=== PATIENT | male | born 1980 | race Hispanic/Latino ===

== ENCOUNTER 2021-07-22 06:20 | Day surgery (SDC) | payer BC ==
[2021-07-19 16:27] LABS: Absolute Lymphocytes (CBC) 2.7 K/uL (0.7-4.9); Lymphocytes % 23.5 % (15.3-44.8); MPV 8.4 fL (7.6-11.3); RBC Red Blood Cell Count 4.54 M/uL (4.33-5.43)
[2021-07-19 16:35] LABS: Potassium 4.5 mmol/L (3.5-5.1)
--- NOTE | 2021-07-19 16:42 | RAD REPORT ---
EXAM DESCRIPTION: RAD - Chest Pa And Lat (2 Views) - 07/19/2021 4:09 pm CLINICAL HISTORY: Pre Op pending back mass removal COMPARISON: None TECHNIQUE: Frontal and lateral views of the chest were obtained. FINDINGS: The lungs are clear. Heart size is normal and central vasculature is within normal limit s. No pleural effusion or pneumothorax seen. No acute bony finding noted. No aortic abnormality. IMPRESSION: No acute cardiopulmonary process.
--- NOTE | 2021-07-20 07:48 | EKG ---
Test Date: 2021-07-19 Test Time: 15:50:20 Medical Associate: AMY MEASUREMENT RESULTS: Intervals: Rate: 76 PA: 178 QRSD: 100 QT: 366 QTc: 411 Grannis: P: 64 PA: 178 QRS: -1 T: 38 INTERPRETIVE STATEMENTS: Normal sinus rhythm Normal ECG No previous ECG available for comparison Electronically Signed On 07-20-21 07:45:43 PEARL CUTTER by Andrew Barajas
[2021-07-22] MEDS ORDERED: Ringers Lactate 1,000 ML IV ONE (06:45)
[2021-07-22] MEDS ORDERED: CEFAZOLIN/NS 1gm 1 GM/50 ML BAG ONE (06:46)
[2021-07-22] MEDS ORDERED: LIDOCAINE 1% 20 ML MDV ONE (07:15)
[2021-07-22] MEDS ORDERED: BUPIVACAINE 0.5% PF 10 ML VIAL ONE (07:15)
[2021-07-22] MEDS ORDERED: LIDOCAINE 1% MPF 5 ML VIAL ONE (07:18)
[2021-07-22] MEDS ORDERED: FENTANYL CITR 100 MCG/2 ML ONE (07:18)
[2021-07-22] MEDS ORDERED: MIDAZOLAM HCL 2 MG/2 ML INJ ONE (07:18)
[2021-07-22] MEDS ORDERED: propofoL 200 MG/20 ML VIAL IV ONE (07:18)
[2021-07-22] MEDS ORDERED: KETOROLAC 30 MG/ML INJ ONE (07:55)
[2021-07-22] MEDS ORDERED: ONDANSETRON 4 MG/2 ML VIAL ONE (07:55)
[2021-07-22 08:53] VITALS: O2SAT 100
[2021-07-22 09:07] VITALS: BP 111/86; TEMP 97.4
[2021-07-22] MEDS ORDERED: CODEINE 30MG/APAP 300MG TAB ONE (09:12)
--- NOTE | 2021-07-22 09:38 | OP ---
Date of Procedure: 07/22/2021 Surgeon: Ken Hathaway MD Cmo & President: None. Preoperative Diagnosis: Inflamed left back mass, likely a sebaceous cyst. Postoperative Diagnosis: Inflamed left back mass, likely a sebaceous cyst. Procedure: Wide excision of left back mass 12 x 4 cm with layered closure. Estimated Blood Loss: Minimal. Specimen: Culture and sensitivity of the purulent material that was inside the cyst and the entire c yst in total. Findings: As above. Anesthesia: General. Complications: None. Disposition: The patient tolerated the procedure in stable condition and taken to Recovery in good g eneral condition. Procedure In Detail: The patient was brought to the OR and placed in supine position. General anest hesia begun. The patient was placed in the right lateral position, prepped draped in the usual steri le fashion. Marcaine 0.5% was infiltrated locally for postop pain control and 15 blade was used to m елена a 12 x 4 cm incision to include the punctum of the cyst and subcutaneous tissue divided and then the cyst carefully dissected. There was minimal purulence that was coming from the cyst and that was cultured. The entire cyst in total was excised including all the jennings and everything and sent to P athology. Wound irrigated. Bleeding controlled with cautery. Flaps created and then 0 chromic was used to approximate subcutaneous tissue and kristin used to close skin. A quarter-inch [place] drain was placed to secure with 3-0 nylon and then sterile dressing was applied. Patient was awakened and taken to Recovery in good general condition. Discharge Note: The patient will go to Day Surgery and home when stable. Disposition: Home. Condition: Stable. Discharge Instructions: Resume home medications and diet. Activity as tolerated. Remove outer dres sing in 2 days. Shower. Keep wound clean and dry. Follow up in my office in 10 days. Call for sindy ointment. Tylenol No.3 one tablet p.o. q.4 p.r.n. pain, Cipro 500 mg p.o. q.12. /MODL Voice ID: [id number] Report ID: [id number]
== END 2021-07-22 09:49 | disposition home or self-care (01) ==
LOC: OR 06:20
PROVIDERS: ATTEND Surgery
PROC: 0JB70ZZ Excision of Back Subcutaneous Tissue and Fascia, Open Approach (ICD-10-PCS; principal; 2021-07-22 08:45)
DX: L72.0 Epidermal cyst (principal)
CPT/HCPCS: 93005; 87070; 85025; 80048; 36415; 87205; 88305; 87075; 71046; 11406; J2704; J2250; J3010; J0690; J7120; J2405; 88304

== ENCOUNTER 2021-10-09 09:36 | Emergency (ER) | payer BC ==
--- OUTSIDE RECORDS SUMMARY | 2021-10-09 09:39 | XMS REPORT | Continuity of Care Document ---
:1980 Author Organization [facility] t Address [address] [place] [address] Care Team Providers Name Role Phone Pcp, Does Not Have A Primary Care Physician Nurse, [facility] Attending Clinician Unavailable Unknown Attending Clinician Unavailable Payers Payer Name Policy Type Policy Number Effective Date Expiration Date S ource Problems This patient has no known problems. Allergies, Adverse Reactions, Alerts This patient has no known allergies or adverse reactions. Social History Social Habit Start Date Stop Date Quantity Comments Source Exposure to Not sure [facility] SARS-CoV-2 (event) [facility] [place] Tobacco use and 2021-10-09 2021-10-09 Never used [facility] exposure 00:00:00 00:00:00 [facility] Sex Assigned At [birth year] [facility] 00:00:00 00:00:00 [facility] Smoking Status Start Date Stop Date Source Never smoker [facility] Medications This patient has no known medications. Vital Signs Vital Name Observation Time Observation Value Comments Source Body height 2021-10-09 14:27:00 180.3 cm [facility] Body weight 2021-10-09 14:27:00 122.018 kg [facility] BMI 2021-10-09 14:27:00 37.52 kg/m2 [facility] Oxygen saturation in 2021-10-09 14:27:00 98 /min [facility] Arterial blood by [facility] Pulse oximetry Branch Systolic blood 2021-10-09 14:27:00 131 mm[Hg] Vanessa tucker of pressure [facility] Diastolic blood 2021-10-09 14:27:00 85 mm[Hg] Unive rsity of pressure [facility] Heart rate 2021-10-09 14:27:00 87 /min [facility] Body temperature 2021-10-09 14:27:[address] [facility] Respiratory rate 2021-10-09 14:27:00 16 /min [facility] Procedures This patient has no known procedures. Encounters Start End Encounter Admission Attending Care Care Encounter Source Date/Time Date/Time Type Type Clinicians Facility Department ID 2021-10-09 2021-10-09 Nurse Nurse, Mehran [facility] [id number] [facility] 09:15:00 09:35:00 Visit Unknown, Attending HEALTH [id number] Lucita [id number] Anselmo as NAZANIN?BLEA [phone] [address] MEDICAL OFFICE BUILDING Results This patient has no known results.
--- NOTE | 2021-10-09 11:17 | RAD REPORT ---
EXAM DESCRIPTION: US - Scrotum Testicles - 10/09/2021 10:39 am CLINICAL HISTORY: Swelling;Pain COMPARISON: No comparisons FINDINGS: The right testicle 4.1 x 3.7 x 3.0 cm. No intratesticular masses or evidence of testicular torsion. The left testicle 4.5 x 3.2 x 2.7 cm. No intratesticular masses or evidence of testicular torsion. Both epididymides are normal in size and appearance. No pathologic fluid collections. Trace scrotal fluid bilaterally. IMPRESSION: Unremarkable study.
[2021-10-09 11:43] LABS: Urine Blood Negative (Negative); Urine Glucose Negative (Negative); Urine Protein Negative (Negative)
--- NOTE | 2021-10-09 11:51 | EDPHYS ---
Physician Documentation [facility] Name: Theodore Esqueda Jr Age: 41 yrs Sex: Male : 1980 Arrival Date: 10/09/2021 Time: 09:38 Bed 5 Private MD: Davi Longo E ED Physician Spike Cardozo HPI: 10/09 11:49 This 41 yrs old Male presents to ER via Ambulatory with complaints of kb Testicular Swelling, Testicular Pain. 11:49 The patient presents with scrotal pain, of the right side, without erythema, swelling, kb tenderness. Onset: The symptoms/episode began/occurred yesterday. Modifying factors: The symptoms are alleviated by nothing, the symptoms are aggravated by movement, pressure. Associated signs and symptoms: The patient has no apparent associated signs or symptoms. Severity of symptoms: At their worst the symptoms were moderate, in the emergency department the symptoms are unchanged. The patient has not experienced similar symptoms in the past. The patient has not recently seen a physician. Historical: - Allergies: 09:55 No Known Allergies; jl7 - Home Meds: 09:55 None [Active]; jl7 - PMHx: 09:55 None; jl7 - PSHx: 09:55 None; jl7 - Immunization history:: Client reports receiving the 2nd dose of the Covid vaccine. - Social history:: Smoking status: Patient denies any tobacco usage or history of. ROS: 11:49 Constitutional: Negative for fever, chills, and weight loss. kb 11:49 : Positive for testicular pain of the right testicle. 11:49 All other systems are negative. Exam: 11:49 Constitutional: This is a well developed, well nourished patient who is awake, alert, kb and in no acute distress. Head/Face: Normocephalic, atraumatic. ENT: Moist Mucous membranes Respiratory: Respirations even and unlabored. No increased work of breathing. Talking in full sentences Abdomen/GI: Soft, non-tender. No distention Skin: Warm, dry with normal turgor. Normal color. MS/ Extremity: Pulses equal, no cyanosis. Neurovascular intact. Full, normal range of motion. Neuro: Awake and alert, GCS 15, oriented to person, place, time, and situation. Moves all extremities. Normal gait. Psych: Awake, alert, with orientation to person, place and time. Behavior, mood, and affect are within normal limits. 11:49 : Male external genitalia: tenderness, of the right testicle is noted, that is moderate. Vital Signs: 09:46 BP 148 / 85; Pulse 85; Resp 17; Temp 98; Pulse Ox 100% ; Weight 120.2 kg; Height 5 ft. jl7 11 in. (180.34 cm); Pain 4/10; 09:46 Body Mass Index 36.96 (120.20 kg, 180.34 cm) jl7 MDM: 09:48 Patient medically screened. kb 11:48 Data reviewed: vital signs, nurses notes. Data interpreted: Pulse oximetry: on room air kb is 100 %. Interpretation: normal. Counseling: I had a detailed discussion with the patient and/or guardian regarding: the historical points, exam findings, and any diagnostic results supporting the discharge/admit diagnosis, radiology results, the need for outpatient follow up, a family practitioner, to return to the emergency department if symptoms worsen or persist or if there are any questions or concerns that arise at home. 12:42 ED course: No signs of cellulitis, abscess, discoloration noted to scrotum. kb 10/09 11:44 Order name: Urine Dipstick-Ancillary; Complete Time: 11:45 EDUT 10/09 09:49 Order name: US Scrotum Testicles; Complete Time: 11:20 kb 10/09 11:37 Order name: Urine Dipstick-Ancillary (obtain specimen); Complete Time: 11:45 kb Administered Medications: No medications were administered Disposition: 14:51 Co-signature as Attending Physician, Spike Cardozo MD. rn Disposition Summary: 10/09/21 11:50 Discharge Ordered Location: Home kb Condition: Stable kb Diagnosis - Right testicular pain kb Followup: kb - With: Emergency Department - When: As needed - Reason: Worsening of condition Followup: kb - With: Donovan Chowdary MD - When: 2 - 3 days - Reason: Recheck today's complaints Discharge Instructions: - Discharge Summary Sheet kb - Testicular Self-Exam, [id number] kb Forms: - Medication Reconciliation Form kb - Thank You Letter kb - Antibiotic Education kb - Prescription Opioid Use kb Signatures: Dispatcher [employer] EDMS Esperanza Wilson FNP-Keren KIM-Ckb Spike Cardozo MD MD rn Leal, Jahala, DAVID RN jl7
--- NOTE | 2021-10-09 11:51 | ER ---
Nurse's Notes [facility] Name: Theodore Esqueda Jr Age: 41 yrs Sex: Male : 1980 Arrival Date: 10/09/2021 Time: 09:38 Bed 5 Private MD: Davi Longo E Diagnosis: Right testicular pain Presentation: 10/09 09:46 Chief complaint: Patient states: Right testicular swelling and pain x 1 day, denies jl7 trauma, denies urinary symtpoms. 09:46 Coronavirus screen: At this time, the client does not indicate any symptoms associated jl7 with coronavirus-19. Ebola Screen: No symptoms or risks identified at this time. Initial Sepsis Screen: Does the patient meet any 2 criteria? No. Patient's initial sepsis screen is negative. Does the patient have a suspected source of infection? No. Patient's initial sepsis screen is negative. Risk Assessment: Do you want to hurt yourself or someone else? Patient reports no desire to harm self or others. Onset of symptoms was October 08, 2021. Care prior to arrival: None. 09:46 Method Of Arrival: Ambulatory jl7 09:46 Acuity: BINA 2 jl7 Triage Assessment: 09:55 General: Appears in no apparent distress. uncomfortable, Behavior is calm, cooperative, jl7 appropriate for age. Pain: Complains of pain in pelvis Pain currently is 4 out of 10 on a pain scale. Historical: - Allergies: 09:55 No Known Allergies; jl7 - Home Meds: 09:55 None [Active]; jl7 - PMHx: 09:55 None; jl7 - PSHx: 09:55 None; jl7 - Immunization history:: Client reports receiving the 2nd dose of the Covid vaccine. - Social history:: Smoking status: Patient denies any tobacco usage or history of. Screenin:12 Abuse screen: Denies threats or abuse. Denies injuries from another. Nutritional villavicencio screening: No deficits noted. Tuberculosis screening: No symptoms or risk factors identified. Fall Risk None identified. Assessment: 10:12 General: Appears in no apparent distress. Behavior is calm, cooperative. Pain: villavicencio Complains of pain in right testicular pain. : Reports pain in right testicle. Vital Signs: 09:46 BP 148 / 85; Pulse 85; Resp 17; Temp 98; Pulse Ox 100% ; Weight 120.2 kg; Height 5 ft. jl7 11 in. (180.34 cm); Pain 4/10; 09:46 Body Mass Index 36.96 (120.20 kg, 180.34 cm) jl7 ED Course: 09:38 Patient arrived in ED. as 09:39 Davi Longo MD is Private Physician. as 09:45 Esperanza Wilson FNP-C is [facility]. kb 09:45 Spike Cardozo MD is Attending Physician. kb 09:52 Aimee Thompson, RN is Primary Nurse. villavicencio 09:55 Triage completed. jl7 09:55 Arm band placed on right wrist. jl7 10:12 Patient has correct armband on for positive identification. Bed in low position. villavicencio 10:12 No provider procedures requiring assistance completed. villavicencio 10:41 US Scrotum Testicles In Process Unspecified. EDMS 11:50 Donovan Chowdary MD is Referral Physician. kb 12:04 Patient did not have IV access during this emergency room visit. villavicencio Administered Medications: No medications were administered Outcome: 11:50 Discharge ordered by MD. kb 12:04 Discharged to home villavicencio 12:04 Condition: good 12:04 Discharge instructions given to patient. 12:04 Patient left the ED. villavicencio Signatures: Dispatcher [employer] EDMS Esperanza Wilson FNP-C FNP-Ckb Martinez, Amelia as Leal, Jahala, RN RN [facility] Aimee Thompson, DAVID RN
[2021-10-09 12:08] VITALS: BP 148/85; TEMP 98; O2SAT 100
== END 2021-10-09 12:04 | disposition home or self-care (01) ==
LOC: ER 09:36
DX: N50.811 Right testicular pain (principal)
CPT/HCPCS: 76870; 81003; 99283

== ENCOUNTER 2023-06-18 03:42 | Emergency (ER) | payer BC ==
--- OUTSIDE RECORDS SUMMARY | 2023-06-18 03:46 | XMS REPORT | Continuity of Care Document ---
Author Name Unknown Address [address] [facility] [address] [place] [address] [facility] thconnect Address [address] [facility] 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 Role Phone Davi Longo Elizabeth Primary Care Physician Nickell_K Attending Clinician Unavailable ROBLES MARIE Attending Clinician Unavailable NETTA PERRY Attending Clinician Unavailable AILYN GUEVARA Attending Clinician Unavail able LI ERIC Attending Clinician Un available ADRIÁN GALAN Attending Clinician Unavailable Doctor Unassigned, [place] Attending Clinician U hilda Nurse, [facility] Attending Clinician Un available Unknown, Attending Attending Clinician Unavailab DEBBI Snell Attending Clinician Unavailable UNKNOWN, ATTENDING Attending Clinician Unavailab maria fernanda Davila_Lucie Admitting Clinician Unavailable NETTA PERRY Admitting Clinician Unavailable MOVAILYN ORTIZ Admitting Clinician Unavailable Payers Payer Name Policy Type Policy Number Effective Date Expirati on Date Source [place] [id number] 2019 00:00:00 [facility] [id number] 2019 00:00:00 Problems Condition Name Condition Details Condition Category Status Onset Date Resolution Date Last Treatment Date Treating Clinician Comments Source Male hypogonadi sm Male Hypogonadi sm Problem Active 5-17 00:00: 00 [facility] Body mass index 30+ - obesity Body Mass Index 30+ - Obesity Problem Active 2021-07 0-12 00:00: 00 [facility] Chronic cystitis Chronic Cystitis Problem Active 2021-07 0 00:00: 00 [facility] Orchitis and epididymit is Orchitis and Epididymit is Problem Active 2021-07 00:00: 00 [facility] Allergies, Adverse Reactions, Alerts Allergy Name Allergy Type Status Severity Reaction(s) Onset Date Inactive Date Treating Clinician Comments Source NO KNOWN ALLERGIE S Drug Class Active [facility] Social History Social Habit Start Date Stop Date Quantity Comments Source Exposure to SARS-CoV-2 (event) Not sure [facility] Tobacco use and exposure 2021-10-09 00:00:00 2021-10-09 00:00:00 Never used [facility] Sex Assigned At 1980 00:00:00 1980 00:00:00 [facility] Smoking Status Start Date Stop Date Source Current Some Day Smoker [facility] Never smoker [facility] Medications Ordered Medication Name Filled Medication Name Start Date Stop Date Current Medication? Ordering Clinician Indication Dosage Frequency Signature (SIG) Comments Components Source cranberry cranberry No cranberry [facility] cranberry cranberry No cranberry [facility] multivitami n multivitami n No multivitam in [facility] tamsulosin 0.4 mg capsule Take 1 capsule every day by oral route for 90 days. tamsulosin 0.4 mg capsule Take 1 capsule every day by oral route for 90 days. No 1capsul e(s) Q1D tamsulosin 0.4 mg capsule Take 1 capsule every day by oral route for 90 days. [facility] cefpodoxime 200 mg tablet Take 1 tablet every 12 hours by oral route. cefpodoxime 200 mg tablet Take 1 tablet every 12 hours by oral route. No 1 Q12H cefpodoxim e 200 mg tablet Take 1 tablet every 12 hours by oral route. [facility] cranberry cranberry No cranberry [facility] multivitami n multivitami n No multivitam in [facility] ondansetron ondansetron No on dansetro n [facility] tamsulosin 0.4 mg capsule TAKE 1 CAPSULE BY MOUTH EVERY DAY tamsulosin 0.4 mg capsule TAKE 1 CAPSULE BY MOUTH EVERY DAY No tamsulosin 0.4 mg capsule TAKE 1 CAPSULE BY MOUTH EVERY DAY [facility] cranberry cranberry No cranberry [facility] multivitami n multivitami n No multivitam in [facility] tamsulosin 0.4 mg capsule TAKE 1 CAPSULE BY MOUTH EVERY DAY tamsulosin 0.4 mg capsule TAKE 1 CAPSULE BY MOUTH EVERY DAY No tamsulosin 0.4 mg capsule TAKE 1 CAPSULE BY MOUTH EVERY DAY [facility] Vital Signs Vital Name Observation Time Observation Value Comments S ource Body Weight 2023-05-04 00:00:00 250 [lb_av] [facility] BP Diastolic 2023-05-04 00:00:00 64 mm[Hg] [facility] Height 2023-05-04 00:00:00 71 [in_i] [facility] BMI (Body Mass Index) 2023-05-04 00:00:00 34.9 kg/m2 [facility] BP Systolic 2023-05-04 00:00:00 128 mm[Hg] [facility] BP Diastolic 2022-12-22 00:00:00 66 mm[Hg] [facility] Height 2022-12-22 00:00:00 71 [in_i] [facility] BMI (Body Mass Index) 2022-12-22 00:00:00 37 kg/m2 [facility] BP Systolic 2022-12-22 00:00:00 128 mm[Hg] [facility] Body Weight 2022-12-22 00:00:00 265 [lb_av] [facility] BP Diastolic 2022-11-10 00:00:00 72 mm[Hg] [facility] Height 2022-11-10 00:00:00 71 [in_i] [facility] BMI (Body Mass Index) 2022-11-10 00:00:00 36.3 kg/m2 [facility] BP Systolic 2022-11-10 00:00:00 128 mm[Hg] [facility] Body Weight 2022-11-10 00:00:00 260 [lb_av] [facility] BP Diastolic 2022-04-19 00:00:00 68 mm[Hg] [facility] Height 2022-04-19 00:00:00 71 [in_i] [facility] BMI (Body Mass Index) 2022-04-19 00:00:00 39.1 kg/m2 [facility] BP Systolic 2022-04-19 00:00:00 122 mm[Hg] [facility] Body Weight 2022-04-19 00:00:00 280 [lb_av] [facility] Systolic blood pressure 2021-10-09 14:27:00 131 mm[Hg] [facility] Diastolic blood pressure 2021-10-09 14:27:00 85 mm[Hg] [facility] Heart rate 2021-10-09 14:27:00 87 /min [facility] Body temperature 2021-10-09 14:27:00 36.78 Debra [facility] Respiratory rate 2021-10-09 14:27:00 16 /min [facility] Body height 2021-10-09 14:27:00 180.3 cm [facility] Body weight 2021-10-09 14:27:00 122.018 kg [facility] BMI 2021-10-09 14:27:00 37.52 kg/m2 [facility] Oxygen saturation in Arterial blood by Pulse oximetry 2021-10-09 14:27:00 98 /min [facility] Procedures Procedure Date / Time Performed Performing Clinicia n Source REFERRAL- REQUEST/RESPONSE 2021-10-10 05:01:00 Doctor Unassigned, [place] [facility] Plan of Care Planned Activity Planned Date Details Comments Source Diagnostic Test Pending 2022-12-22 00:00:00 urinalysis, dipstick [code = urinalysis, dipstick] [facility] Diagnostic Test Pending 2022-12-22 00:00:00 culture, urine [code = culture, urine] [facility] Future Appointment 2023-11-03 00:00:00 Chris Davila, [id number] [address]; , [place] [address] [facility] Encounters Start Date/Time End Date/Time Encounter Type Admission Type Attending [facility] Care Department Encounter ID Source 2023-05-08 00:00:00 2023-05-08 00:00:00 Outpatient Nickell_K HMU HMU [id number] [facility] 2023-05-04 00:00:00 2023-05-04 00:00:00 Outpatient Nickell_K HMU HMU [id number] [facility] 2023-05-04 00:00:00 2023-05-04 00:00:00 Chris Davila MD: [id number] [address], [place] [address] , Ph. [facility] [place] - [id number] [facility] 2023-05-01 00:00:00 2023-05-01 00:00:00 Outpatient Nickell_K HMU HMU [id number] [facility] 2023-02-08 00:00:00 2023-02-08 00:00:00 Outpatient Nickell_K HMU HMU [id number] [facility] 2023-01-04 00:00:00 2023-01-04 00:00:00 Outpatient Nickell_K HMU HMU [id number] [facility] 2022-12-22 00:00:00 2022-12-22 00:00:00 Outpatient Nickell_K HMU HMU [id number] [facility] 2022-12-22 00:00:00 2022-12-22 00:00:00 Outpatient Nickell_K HMU HMU [id number] [facility] 2022-12-22 00:00:00 2022-12-22 00:00:00 Chris Davila MD: [id number] [address], [place] [address] , Ph. [facility] [place] - [id number] [facility] 2022-12-21 19:43:00 2022-12-21 23:06:00 [id number] 2022-11-30 00:00:00 2022-11-30 00:00:00 Outpatient Nickell_K HMU HMU [id number] [facility] 2022-11-21 00:00:00 2022-11-21 00:00:00 Outpatient Nickell_K HMU HMU [id number] [facility] 2022-11-10 00:00:00 2022-11-10 00:00:00 Outpatient Nickell_K HMU HMU [id number] [facility] 2022-11-10 00:00:00 2022-11-10 00:00:00 Outpatient Nickell_K HMU U [id number] [facility] 2022-11-10 00:00:00 2022-11-10 00:00:00 Chris Davila MD: [id number] [address] , Ph. [facility] [id number] [facility] 2022-11-06 00:00:00 2022-11-06 00:00:00 Outpatient Nickell_K HMU U [id number] [facility] 2022-11-06 00:00:00 2022-11-06 00:00:00 Outpatient Nickell_K HMU [id number] [facility] 2022-04-27 00:00:00 2022-04-27 00:00:00 Outpatient Nickell_K HMU HMU [id number] [facility] 2022-04-20 00:00:00 2022-04-20 00:00:00 Outpatient Nickell_K HMU HMU [id number] [facility] 2022-04-19 00:00:00 2022-04-19 00:00:00 Outpatient Nickell_K HMU HMU [id number] [facility] 2022-04-19 00:00:00 2022-04-19 00:00:00 Chris Davila MD: [id number] [facility] [address], [place] [address] , Ph. [facility] [place] - [id number] [facility] 2022-04-17 00:00:00 2022-04-17 00:00:00 Outpatient Nickell_K [facility] [id number] [facility] 2022-03-28 00:00:00 2022-03-28 00:00:00 Outpatient Nickell_K [facility] [id number] [facility] 2021-11-05 16:27:00 2021-11-09 16:22:00 Inpatient E NETTA PERRY [facility] MED [id number] [facility] 2021-10-21 08:52:00 2021-10-24 12:45:00 Inpatient E AILYN GUEVARA [facility] MED [id number] [facility] 2021-10-19 16:53:00 2021-10-20 01:16:00 Emergency E LI ERIC [facility] [id number] [facility] 2021-10-13 10:30:00 2021-10-13 10:30:00 Outpatient R ADRIÁN GALAN [facility] [id number] [facility] 2021-10-10 00:00:00 2021-10-10 00:00:00 Orders Only Doctor Unassigned, [place] [facility] [id number] [facility] 2021-10-09 09:15:00 2021-10-09 09:35:00 Nurse Visit Nurse, [facility] Unknown, Attending [facility] [id number] [facility] 2021-10-09 09:15:00 2021-10-09 09:29:36 Outpatient R DEBBI TRISTAN [facility] [id number] [facility] 2021-10-09 09:15:00 2021-10-09 09:15:00 Outpatient R UNKNOWN, ATTENDING [facility] [id number] [facility] Results Test Description Test Time Test Comments Results Result Co mments Source [facility] UrologyUrinalysis macro (dipstick) panel - [id number] 15:37:00* Test Item Value Reference Range Interpretation Comme nts leukocytes (test code = leukocytes) negative neg urobilinogen (test code = urobilinogen) 0.2 E.U./dL sm amt (.5-1mg/dL) protein (test code = protein) negative See_Comment [Automated messa ge] The system which generated this result transmitted reference range: <=150 mg/d. The reference range was not used to interpret this result as normal/abnormal. pH (test code = pH) 7.0 4.5-8 blood (test code = blood) negative See_Comment [Automated messa ge] The system which generated this result transmitted reference range: <=3 RBC. The reference range was not used to interpret this result as normal/abnormal. specific gravity (test code = specific gravity) 1.025 1.005-1.025 ketone (test code = ketone) trace none A bilirubin (test code = bilirubin) negative neg glucose (test code = glucose) negative See_Comment [Automated messa ge] The system which generated this result transmitted reference range: <=130 mg/d. The reference range was not used to interpret this result as normal/abnormal. color (test code = color) yellow yellow clarity (test code = clarity) clear clear or cloudy nitrite (test code = nitrite) negative neg [facility] UrologyUrinalysis macro (dipstick) panel - [id number] 11:07:00* Test Item Value Reference Range Interpretation Comme nts leukocytes (test code = leukocytes) negative neg urobilinogen (test code = urobilinogen) 0.2 E.U./dL sm amt (.5-1mg/dL) protein (test code = protein) negative See_Comment [Automated messa ge] The system which generated this result transmitted reference range: <=150 mg/d. The reference range was not used to interpret this result as normal/abnormal. pH (test code = pH) 6.5 4.5-8 blood (test code = blood) negative See_Comment [Automated [employer]] The system which generated this result transmitted reference range: <=3 RBC. The reference range was not used to interpret this result as normal/abnormal. specific gravity (test code = specific gravity) 1.020 1.005-1.025 ketone (test code = ketone) negative none bilirubin (test code = bilirubin) negative neg glucose (test code = glucose) negative See_Comment [Automated [employer]] The system which generated this result transmitted reference range: <=130 mg/d. The reference range was not used to interpret this result as normal/abnormal. color (test code = color) yellow yellow clarity (test code = clarity) clear clear or cloudy nitrite (test code = nitrite) negative neg [facility]
[2023-06-18] MEDS ORDERED: NA CHLORIDE 0.9% 1,000 ML ONE (04:25)
[2023-06-18 04:40] LABS: Absolute Lymphocytes (CBC) 2.7 K/uL (0.7-4.9); Hematocrit 44.7 % (39.6-49.0); Lymphocytes % 22.7 % (15.3-44.8); MCV 89.7 fL (80-100); MPV 8.3 fL (7.6-11.3); Platelets 322 thou/uL (152-406); RBC Red Blood Cell Count 4.98 M/uL (4.33-5.43)
[2023-06-18 04:47] LABS: Albumin 4.1 g/dL (3.4-5.0); Potassium 3.7 mEq/L (3.5-5.1); Protein, Total 8.6 g/dL (6.4-8.2)
--- NOTE | 2023-06-18 06:14 | EDPHYS ---
Physician Documentation [facility] Name: Theodore Esqueda Jr Age: 43 yrs Sex: Male : 1980 Arrival Date: 06/18/2023 Time: 03:42 Bed 12 Private MD: ED Physician Nehemias Hernandez HPI: 06/18 04:14 This 43 yrs old Male presents to ER via Ambulatory with complaints of rt Diarrhea, Abdominal Pain. 04:14 Patient presents to the ED with diarrhea, generalized abdominal pain starting about 24 rt hours ago. States the diarrhea is watery, nonbloody. Denies other acute complaints, symptoms are moderate severity, no other aggravating or alleviating factors.. Historical: - Allergies: 04:05 No Known Allergies; ha1 - PMHx: 04:05 None; ha1 - PSHx: 04:05 riight testicle removed; ha1 - Immunization history:: Adult Immunizations not up to date. - Social history:: Smoking status: Patient reports the use of cigarette tobacco products, denies chronic smoking, but will smoke occasionally. - Family history:: not pertinent. ROS: 04:14 Constitutional: Negative for fever, chills, and weight loss, Cardiovascular: Negative rt for chest pain, palpitations, and edema, Respiratory: Negative for shortness of breath, cough, wheezing, and pleuritic chest pain, MS/Extremity: Negative for injury and deformity, Skin: Negative for injury, rash, and discoloration, Neuro: Negative for headache, weakness, numbness, tingling, and seizure, Psych: Negative for depression, anxiety, suicide ideation, homicidal ideation, and hallucinations, 04:14 Abdomen/GI: Positive for abdominal pain, diarrhea, Negative for nausea and vomiting, Exam: 04:14 Constitutional: This is a well developed, well nourished patient who is awake, alert, rt and in no acute distress. Head/Face: Normocephalic, atraumatic. Chest/axilla: Normal chest wall appearance and motion. Nontender with no deformity. No lesions are appreciated. Cardiovascular: Regular rate and rhythm with a normal S1 and S2. No gallops, murmurs, or rubs. Normal PMI, no JVD. No pulse deficits. Respiratory: Lungs have equal breath sounds bilaterally, clear to auscultation and percussion. No rales, rhonchi or wheezes noted. No increased work of breathing, no retractions or nasal flaring. Skin: Warm, dry with normal turgor. Normal color with no rashes, no lesions, and no evidence of cellulitis. MS/ Extremity: Pulses equal, no cyanosis. Neurovascular intact. Full, normal range of motion. Neuro: Awake and alert, GCS 15, oriented to person, place, time, and situation. Cranial nerves II-XII grossly intact. Motor strength 5/5 in all extremities. Sensory grossly intact. Cerebellar exam normal. Normal gait. Psych: Awake, alert, with orientation to person, place and time. Behavior, mood, and affect are within normal limits. 04:14 Respiratory: Mild tenderness diffusely, worse in the right upper quadrant, no rebound, guarding, distention, Vital Signs: 04:00 BP 135 / 88; Pulse 75; Resp 16 S; Temp 97.8(O); Pulse Ox 98% on R/A; Weight 111.13 kg; ha1 Height 5 ft. 10 in. ; Pain 4/10; 04:27 BP 117 / 80; Pulse 74; Resp 17 S; Pulse Ox 98% on R/A; ha1 05:03 BP 126 / 80; Pulse 75; Resp 17 S; Pulse Ox 99% on R/A; ha1 06:00 BP 125 / 70; Pulse 70; Resp 15 S; Temp 98.1(O); Pulse Ox 100% on R/A; ha1 04:00 Body Mass Index 35.15 (111.13 kg, 177.8 cm) ha1 04:00 Pain Scale: Adult ha1 MDM: 03:59 Patient medically screened. rt 06:14 Differential diagnosis: Diverticulitis, colitis, viral gastroenteritis. Data reviewed: rt vital signs, nurses notes, lab test result(s), radiologic studies. Independent interpretation of the following test(s) in the Emergency Department CT Scan: My interpretation is No bowel obstruction syndrome interpretation of CT scan images. Counseling: I had a detailed discussion with the patient and/or guardian regarding the historical points, exam findings, and any diagnostic results supporting the discharge/admit diagnosis, lab results, radiology results, the need for outpatient follow up, to return to the emergency department if symptoms worsen or persist or if there are any questions or concerns that arise at home. Response to treatment: the patient's symptoms have markedly improved after treatment. 06/18 04:03 Order name: CBC with Diff; Complete Time: 04:49 rt 06/18 04:03 Order name: CMP; Complete Time: 04:49 rt 06/18 04:03 Order name: Lipase; Complete Time: 04:49 rt 06/18 04:03 Order name: CT Abd/Pelvis - IV Contrast Only rt 06/18 04:03 Order name: IV Saline Lock; Complete Time: 04:25 rt 06/18 04:03 Order name: Labs collected and sent; Complete Time: 04:25 rt Administered Medications: 04:25 Drug: NS 0.9% IV 1000 ml IV at 1 bolus Per protocol; 1000 mL bolus Route: IV; Rate: 1 pf1 bolus; Site: left antecubital; 06:31 Follow up: Response: No adverse reaction; IV Status: Completed infusion; IV Intake: ha1 1000ml Disposition Summary: 06/18/23 06:14 Discharge Ordered Notes: Location: Home rt Problem: new rt Symptoms: have improved rt Condition: Stable rt Diagnosis - Diverticulitis of large intestine without perforation or abscess without bleeding rt Followup: rt - With: Sree Laurent MD - When: 10 - 14 days - Reason: Discharge Instructions: - Discharge Summary Sheet rt - Diverticulitis rt Forms: - Medication Reconciliation Form rt - Thank You Letter rt - Antibiotic Education rt - Prescription Opioid Use rt - Patient Portal Instructions rt - Leadership Thank You Letter rt Prescriptions: - Augmentin 875-125 mg Oral Tablet - take 1 tablet ORAL route every 12 hours for 10 days; 20 tablet; Refills: 0, rt Product Selection Permitted Signatures: Dispatcher [employer] Sandra Perry, RN RN ha1 Nehemias Hernandez MD MD rt Nely Damico RN RN pf1
--- NOTE | 2023-06-18 06:14 | ER ---
Nurse's Notes [facility] Name: Theodore Esquead Jr Age: 43 yrs Sex: Male : 1980 Arrival Date: 06/18/2023 Time: 03:42 Bed 12 Private MD: Diagnosis: Diverticulitis of large intestine without perforation or abscess without bleeding Presentation: 06/18 04:00 Chief complaint: Patient states: I have been having diarrhea for the last 24 hours, I ha1 have tried over the counter medications and it is not getting better. about 10 bowel movements in the past 24 hours. Coronavirus screen: Vaccine status: Patient reports receiving the 1st dose of the Covid vaccine. J and J. Ebola Screen: No symptoms or risks identified at this time. Initial Sepsis Screen: Does the patient meet any 2 criteria? No. Patient's initial sepsis screen is negative. Does the patient have a suspected source of infection? No. Patient's initial sepsis screen is negative. Risk Assessment: Do you want to hurt yourself or someone else? Patient reports no desire to harm self or others. Onset of symptoms was June 18, 2023. 04:00 Method Of Arrival: Ambulatory ha1 04:00 Acuity: BINA 3 ha1 Triage Assessment: 04:00 General: Appears uncomfortable, Behavior is calm, cooperative. Pain: Complains of pain ha1 in abdomen Pain does not radiate. Pain currently is 4 out of 10 on a pain scale. Quality of pain is described as crampy, Pain began suddenly, 1 day ago. Neuro: Level of Consciousness is awake, alert, obeys commands, Oriented to person, place, time, situation. Cardiovascular: Capillary refill < 3 seconds Patient's skin is warm and dry. Respiratory: Airway is patent Respiratory effort is even, unlabored, Respiratory pattern is regular, symmetrical. GI: Abdomen is flat, non-distended, Bowel sounds present X 4 quads. Reports lower abdominal pain, upper abdominal pain, diarrhea, nausea. : No signs and/or symptoms were reported regarding the genitourinary system. Derm: Skin is pink, warm \T\ dry. Musculoskeletal: Circulation, motion, and sensation intact. Range of motion: intact in all extremities. Historical: - Allergies: 04:05 No Known Allergies; ha1 - PMHx: 04:05 None; ha1 - PSHx: 04:05 riight testicle removed; ha1 - Immunization history:: Adult Immunizations not up to date. - Social history:: Smoking status: Patient reports the use of cigarette tobacco products, denies chronic smoking, but will smoke occasionally. - Family history:: not pertinent. Screenin:08 [facility] ED Fall Risk Assessment (Adult) History of falling in the last 3 months, ha1 including since admission No falls in past 3 months (0 pts) Confusion or Disorientation No (0 pts) Intoxicated or Sedated No (0 pts) Impaired Gait No (0 pts) Mobility Assist Device Used No (0 pt) Altered Elimination No (0 pt) Score/Fall Risk Level 0 - 2 = Low Risk Oriented to surroundings, Maintained a safe environment, Educated pt \T\ family on fall prevention, incl call for assistance when getting out of bed, Hourly rounding (assess needs \T\ fall precautionary measures) done. Abuse screen: Denies threats or abuse. Denies injuries from another. Nutritional screening: No deficits noted. Tuberculosis screening: No symptoms or risk factors identified. Assessment: 04:00 Reassessment: see triage assessment. ha1 05:03 Reassessment: Patient and/or family updated on plan of care and expected duration. Pain ha1 level reassessed. Patient is alert, oriented x 3, equal unlabored respirations, skin warm/dry/pink. 05:03 Reassessment: going to CT. ha1 06:00 Reassessment: Patient and/or family updated on plan of care and expected duration. Pain ha1 level reassessed. Patient is alert, oriented x 3, equal unlabored respirations, skin warm/dry/pink. Vital Signs: 04:00 BP 135 / 88; Pulse 75; Resp 16 S; Temp 97.8(O); Pulse Ox 98% on R/A; Weight 111.13 kg; ha1 Height 5 ft. 10 in. ; Pain 4/10; 04:27 BP 117 / 80; Pulse 74; Resp 17 S; Pulse Ox 98% on R/A; ha1 05:03 BP 126 / 80; Pulse 75; Resp 17 S; Pulse Ox 99% on R/A; ha1 06:00 BP 125 / 70; Pulse 70; Resp 15 S; Temp 98.1(O); Pulse Ox 100% on R/A; ha1 04:00 Body Mass Index 35.15 (111.13 kg, 177.8 cm) ha1 04:00 Pain Scale: Adult ha1 ED Course: 03:47 Patient arrived in ED. gm2 03:47 Nehemias Hernandez MD is Attending Physician. rt 03:57 Patient has correct armband on for positive identification. Bed in low position. Call ha1 light in reach. Side rails up X 1. 03:57 Arm band placed on right ankle. ha1 04:05 Triage completed. ha1 04:20 Inserted saline lock: 20 gauge in left antecubital area, using aseptic technique. Blood pf1 collected. 04:25 CBC with Diff Sent. pf1 04:25 CMP Sent. pf1 04:25 Lipase Sent. pf1 05:20 CT Abd/Pelvis - IV Contrast Only In Process Unspecified. EDMS 06:13 Sree Laurent MD is Referral Physician. rt 06:30 Provided Education on: diverticulitis and treatment . ha1 06:30 No provider procedures requiring assistance completed. IV discontinued, intact, ha1 bleeding controlled, No redness/swelling at site. Pressure dressing applied. Administered Medications: 04:25 Drug: NS 0.9% IV 1000 ml IV at 1 bolus Per protocol; 1000 mL bolus Route: IV; Rate: 1 pf1 bolus; Site: left antecubital; 06:31 Follow up: Response: No adverse reaction; IV Status: Completed infusion; IV Intake: ha1 1000ml Medication: 04:08 VIS not applicable for this client. ha1 Intake: 06:31 IV: 1000ml; Total: 1000ml. ha1 Outcome: 06:14 Discharge ordered by . rt 06:30 Discharged to home ambulatory, ha1 06:30 Condition: stable 06:30 Discharge instructions given to patient, Instructed on discharge instructions, follow up and referral plans. medication usage, Demonstrated understanding of instructions, follow-up care, medications, Prescriptions given X 1, 06:31 Patient left the ED. ha1 Signatures: Dispatcher [employer] Sandra Benitez RN RN ha1 Nehemias Hernandez MD MD rt Nely Damico RN RN pf1 Radha Fregoso gm2
[2023-06-18 06:50] VITALS: BP 125/70; TEMP 98.1; O2SAT 100
--- NOTE | 2023-06-18 14:47 | RAD REPORT ---
EXAM DESCRIPTION: CT - Abdomen Pelvis W Contrast - 06/18/2023 6:33 am CLINICAL HISTORY: ABD PAIN TECHNIQUE: Contiguous axial images obtained through the abdomen and pelvis following the uneventful administration of IV contrast. Coronal and sagittal reformatted images were provided. This exam was performed according to our departmental dose-optimization program, which includes autom ated exposure control, adjustment of the mA and/or kV according to patient size and/or use of iterati ve reconstruction technique. COMPARISON: None available for comparison. FINDINGS: Lung bases: Clear Liver: Unremarkable Gallbladder and biliary system: Unremarkable Pancreas: Unremarkable Spleen: Unremarkable Adrenals: Unremarkable Kidneys: Normal renal cortical enhancement. No calculi. No hydronephrosis. GI: Multiple scattered colonic diverticula. Mild pericolonic inflammatory changes in the left lower quadrant adjacent to the distal descending co kali consistent with mild acute diverticulitis. No evidence of perforation or organized pericolonic abscess. Appendix: No findings to suggest acute appendicitis. Urinary bladder: Unremarkable Reproductive: Unremarkable as visualized Lymph nodes: No pathologically enlarged lymph nodes. Peritoneum: No focal fluid collection. No free air. Vessels: No abdominal aortic aneurysm. Abdominal wall: Small fat-containing periumbilical ventral hernia. Bones: Unremarkable IMPRESSION: Mild acute distal descending colon diverticulitis.. No evidence of perforation or organi zed pericolonic abscess. Electronically signed by: Denton Dial MD 06/18/2023 06:05 AM [employer] TECHNICIAN Due to temporary technical issues with the PACS/Fluency reporting system, reports are being signed by the in house radiologist without review as a courtesy to ensure prompt reporting. The interpreting r adiologist is fully responsible for the content of the report.
== END 2023-06-18 06:31 | disposition home or self-care (01) ==
LOC: ER 03:42
DX: K57.32 Diverticulitis of large intestine without perforation or abscess without bleeding (principal); F17.210 Nicotine dependence, cigarettes, uncomplicated
CPT/HCPCS: 96361; 85025; 36415; 83690; 80053; 74177; 96360; 99284; Q9967; J7030

== ENCOUNTER 2023-10-09 07:01 | Emergency (ER) | payer BC ==
--- OUTSIDE RECORDS SUMMARY | 2023-10-09 07:07 | XMS REPORT | Continuity of Care Document ---
Author Name Unknown Address [address] [facility] [address] [place] [address] [facility] thconnect Address [address] [facility] [address] [place] [address] Care Team Providers Care Diamond Assorter Name Role Phone MAURICE LONGO Primary Care Physician UnavailMANOLO Rao Attending Clinician Manolo Wooten MD Attending Clinician +- [phone] Doctor Unassigned, [facility] Attending Clinician U navailmontrell Hunt Attending Clinician Unavailable ADRIÁN GALAN Attending Clinician Unavailable Nurse, [facility] Attending Clinician Un available Unknown, Attending Attending Clinician Unavailab DEBBI Snell Attending Clinician Unavailable UNKNOWN, ATTENDING Attending Clinician UnavailMANOLO Bernstein Admitting Clinician Manolo Wooten MD Admitting Clinician +- [phone] Marilee Admitting Clinician Unavailable Payers Payer Name Policy Type Policy Number Effective Date Expirati on Date Source [facility] [id number] 2019 00:00:00 [facility] [place] [id number] 2019 00:00:00 Problems Condition Name Condition Details Condition Category Status Onset Date Resolution Date Last Treatment Date Treating Clinician Comments Source Male hypogonadi sm Male Hypogonadi sm Problem Active 11-22 00:00: 00 [facility] U[facility] Body mass index 30+ - obesity Body Mass Index 30+ - Obesity Problem Active 2021-07 0-12 00:00: 00 [facility] Urology Chronic cystitis Chronic Cystitis Problem Active 2021-07 0- 00:00: 00 [facility] Orchitis and epididymit is Orchitis and Epididymit is Problem Active 2021-07 0-12 00:00: 00 [facility] Urology Allergies, Adverse Reactions, Alerts Allergy Name Allergy Type Status Severity Reaction(s) Onset Date Inactive Date Treating Clinician Comments Source NO KNOWN ALLERGIE S Drug Class Active [facility] Social History Social Habit Start Date Stop Date Quantity Comments Source History of tobacco use Cigarette Smoker [facility] Exposure to SARS-CoV-2 (event) Not sure [facility] History of Social function 2023-09-06 00:00:00 2023-09-06 00:00:00 [facility] Tobacco use and exposure 2023-08-30 00:00:00 2023-08-30 00:00:00 Smokeless tobacco non-user [facility] Sex Assigned At 1980 00:00:00 1980 00:00:00 [facility] Smoking Status Start Date Stop Date Source Occasional tobacco smoker 2023-08-30 00:00:00 [facility] Never smoker [facility] Medications Ordered Medication Name Filled Medication Name Start Date Stop Date Current Medication? Ordering Clinician Indication Dosage Frequency Signature (SIG) Comments Components Source lactated ringers IV infusion 1,000 mL 15:15: 00 Yes 1000mL at 100 mL/hr, 1,000 mL, IV Infusion, CONTINUOUS , Starting on Angy 09/06/23 at 0915, Until Discontinu ed, Routine, PACU [facility] lactated ringers IV infusion 1,000 mL 15:15: 00 18:04 :56 No 1000mL at 100 mL/hr, 1,000 mL, IV Infusion, CONTINUOUS , Starting on Angy 09/06/23 at 0915, Until Angy 09/06/23 at 1204, Routine, PACU [facility] ondansetron (ZOFRAN (PF)) injection 4 mg 15:02: 23 Yes 4mg 4 mg, Slow IV Push, PRN, 1 dose, Starting on Angy 09/06/23 at 0902, Until Discontinu ed, Routine, Nausea and Vomiting (N/V), PACU [facility] ondansetron (ZOFRAN (PF)) injection 4 mg 15:02: 23 18:04 :56 No 4mg 4 mg, Slow IV Push, PRN, 1 dose, Starting on Angy 09/06/23 at 0902, Until Angy 09/06/23 at 1204, Routine, Nausea and Vomiting (N/V), PACU [facility] water for irrigation irrigation solution 14:25: 00 14:43 :19 No PRN, Starting on Angy 09/06/23 at 0825, Until Angy 09/06/23 at 0843, Routine, Intra-op [facility] simethicone (GAS RELIEF (SIMETHICON E)) 40 mg/0.6 mL drops 14:25: 00 14:43 :19 No PRN, Starting on Angy 09/06/23 at 0825, Until Angy 09/06/23 at 0843, Routine, Intra-op [facility] lactated ringers IV infusion 1,000 mL 13:45: 00 13:47 :00 No 1000mL at 42 mL/hr, 1,000 mL, IV Infusion, ONCE, 1 dose, On Angy 09/06/23 at 0745, Routine, DSU Pre-op [facility] lactated ringers IV infusion 1,000 mL 13:45: 00 13:47 :00 No 1000mL at 42 mL/hr, 1,000 mL, IV Infusion, ONCE, 1 dose, On Angy 09/06/23 at 0745, Routine, DSU Pre-op [facility] tamsulosin 0.4 mg 24 hr capsule 10:04: 52 Yes .4mg Take 1 capsule by mouth in the morning. [facility] tamsulosin 0.4 mg 24 hr capsule 10:04: 52 Yes .4mg Take 1 capsule by mouth in the morning. [facility] tamsulosin 0.4 mg 24 hr capsule 10:04: 52 Yes .4mg Take 1 capsule by mouth in the morning. [facility] cranberry cranberry No cranberry [facility] Urolog cranberry cranberry No cranberry [facility] Urology multivitami n multivitami n No multivitam in [facility] tamsulosin 0.4 mg capsule Take 1 capsule every day by oral route for 90 days. tamsulosin 0.4 mg capsule Take 1 capsule every day by oral route for 90 days. No 1capsul e(s) Q1D tamsulosin 0.4 mg capsule Take 1 capsule every day by oral route for 90 days. [facility] cefpodoxime 200 mg tablet Take 1 tablet every 12 hours by oral route. cefpodoxime 200 mg tablet Take 1 tablet every 12 hours by oral route. No 1 Q12H cefpodoxim e 200 mg tablet Take 1 tablet every 12 hours by oral route. [facility] cranberry cranberry No cranberry [facility] multivitami n multivitami n No multivitam in [facility] ondansetron ondansetron No on dansetro n [facility] tamsulosin 0.4 mg capsule TAKE 1 CAPSULE BY MOUTH EVERY DAY tamsulosin 0.4 mg capsule TAKE 1 CAPSULE BY MOUTH EVERY DAY No tamsulosin 0.4 mg capsule TAKE 1 CAPSULE BY MOUTH EVERY DAY [facility] cranberry cranberry No cranberry [facility] Urolog multivitami n multivitami n No multivitam in [facility] tamsulosin 0.4 mg capsule TAKE 1 CAPSULE BY MOUTH EVERY DAY tamsulosin 0.4 mg capsule TAKE 1 CAPSULE BY MOUTH EVERY DAY No tamsulosin 0.4 mg capsule TAKE 1 CAPSULE BY MOUTH EVERY DAY [facility] Vital Signs Vital Name Observation Time Observation Value Comments S ource Respiratory rate 2023-09-06 15:20:00 14 /min [facility] Heart rate 2023-09-06 15:19:00 60 /min [facility] Oxygen saturation in Arterial blood by Pulse oximetry 2023-09-06 15:19:00 100 /min [facility] Systolic blood pressure 2023-09-06 15:18:00 123 mm[Hg] [facility] Diastolic blood pressure 2023-09-06 15:18:00 84 mm[Hg] [facility] Body temperature 2023-09-06 14:43:00 36.44 Debra [facility] Body height 2023-08-30 17:00:00 180.3 cm [facility] Body weight 2023-08-30 17:00:00 113.399 kg [facility] BMI 2023-08-30 17:00:00 34.87 kg/m2 [facility] Heart rate 2023-09-06 15:06:00 64 /min [facility] Respiratory rate 2023-09-06 15:06:00 12 /min [facility] Oxygen saturation in Arterial blood by Pulse oximetry 2023-09-06 15:06:00 100 /min [facility] Systolic blood pressure 2023-09-06 15:03:00 113 mm[Hg] [facility] Diastolic blood pressure 2023-09-06 15:03:00 79 mm[Hg] [facility] Body temperature 2023-09-06 14:43:00 36.44 Debra [facility] Body height 2023-08-30 17:00:00 180.3 cm [facility] Body weight 2023-08-30 17:00:00 113.399 kg [facility] BMI 2023-08-30 17:00:00 34.87 kg/m2 [facility] Body Weight 2023-05-04 00:00:00 250 [lb_av] [facility] BP Diastolic 2023-05-04 00:00:00 64 mm[Hg] [facility] Height 2023-05-04 00:00:00 71 [in_i] [facility] BMI (Body Mass Index) 2023-05-04 00:00:00 34.9 kg/m2 [facility] BP Systolic 2023-05-04 00:00:00 128 mm[Hg] [facility] BP Diastolic 2022-12-22 00:00:00 66 mm[Hg] [facility] Height 2022-12-22 00:00:00 71 [in_i] [facility] BMI (Body Mass Index) 2022-12-22 00:00:00 37 kg/m2 [facility] BP Systolic 2022-12-22 00:00:00 128 mm[Hg] [facility] Body Weight 2022-12-22 00:00:00 265 [lb_av] [facility] BP Diastolic 2022-11-10 00:00:00 72 mm[Hg] [facility] Height 2022-11-10 00:00:00 71 [in_i] [facility] BMI (Body Mass Index) 2022-11-10 00:00:00 36.3 kg/m2 [facility] BP Systolic 2022-11-10 00:00:00 128 mm[Hg] [facility] Body Weight 2022-11-10 00:00:00 260 [lb_av] [facility] BP Diastolic 2022-04-19 00:00:00 68 mm[Hg] [facility] Height 2022-04-19 00:00:00 71 [in_i] [facility] BMI (Body Mass Index) 2022-04-19 00:00:00 39.1 kg/m2 [facility] BP Systolic 2022-04-19 00:00:00 122 mm[Hg] [facility] Body Weight 2022-04-19 00:00:00 280 [lb_av] [facility] Body height 2021-10-09 14:27:00 180.3 cm [facility] Body weight 2021-10-09 14:27:00 122.018 kg [facility] BMI 2021-10-09 14:27:00 37.52 kg/m2 [facility] Oxygen saturation in Arterial blood by Pulse oximetry 2021-10-09 14:27:00 98 /min [facility] Systolic blood pressure 2021-10-09 14:27:00 131 mm[Hg] [facility] Diastolic blood pressure 2021-10-09 14:27:00 85 mm[Hg] [facility] Heart rate 2021-10-09 14:27:00 87 /min [facility] Body temperature 2021-10-09 14:27:00 36.78 Debra [facility] Respiratory rate 2021-10-09 14:27:00 16 /min [facility] Procedures Procedure Date / Time Performed Performing Clinician Source COLONOSCOPY 2023-09-06 14:09:00 Manolo Son [facility] COLONOSCOPY (ENDO) 2023-09-06 13:19:17 Maurice Longo [facility] COLONOSCOPY (ENDO) 2023-09-06 13:19:17 Maurice Longo [facility] DAY SURGERY - ADC 2023-09-06 06:01:00 Doctor Emily ssigned, Vass [facility] EXTERNAL PROVIDER RECORDS 2023-08-03 06:01:00 Doctor Unassigned, Vass [facility] EXTERNAL PROVIDER RECORDS 2023-08-03 06:01:00 Doctor Unassigned, Vass [facility] REFERRAL- REQUEST/RESPONSE 2021-10-10 05:01:00 Doctor Unassigned, Vass [facility] Plan of Care Planned Activity Planned Date Details Comments Source Diagnostic Test Pending 2022-12-22 00:00:00 urinalysis, dipstick [code = urinalysis, dipstick] [facility] U[facility] Diagnostic Test Pending 2022-12-22 00:00:00 culture, urine [code = culture, urine] [facility] Urology Future Appointment 2023-11-03 00:00:00 Chris Davila, [address] [address] [facility] [address]; , [place] [address] [facility] Urology Encounters Start Date/Time End Date/Time Encounter Type Admission Type Attending Clinicians Care Facility Care Department Encounter ID Source 2023-09-06 07:38:00 2023-09-06 09:25:00 Outpatient R MANOLO [facility] [id number] [facility] 2023-09-06 07:38:00 2023-09-06 09:25:00 Hospital Encounter Manolo Covington [facility] [place] [id number] [id number] [facility] 2023-09-06 08:25:00 2023-09-06 09:06:00 Surgery Manolo Covington [facility] [id number] [id number] [facility] 2023-09-06 00:00:00 2023-09-06 00:00:00 Orders Only Doctor Unassigned, Vass [facility] [id number] [id number] [id number] [facility] 2023-09-04 00:00:00 2023-09-04 00:00:00 Outpatient Nickell_K [facility] [id number] [facility] 2023-05-08 00:00:00 2023-05-08 00:00:00 Outpatient Nickell_K [facility] [id number] [facility] 2023-05-04 00:00:00 2023-05-04 00:00:00 Outpatient Nickell_K [facility] [id number] [facility] 2023-05-04 00:00:00 2023-05-04 00:00:00 Chris Davila MD: [id number] [address], [place] [address] , Ph. [facility] [id number] [facility] 2023-05-01 00:00:00 2023-05-01 00:00:00 Outpatient Nickell_K [facility] [id number] [facility] 2023-02-08 00:00:00 2023-02-08 00:00:00 Outpatient Nickell_K [facility] U [id number] [facility] 2023-01-04 00:00:00 2023-01-04 00:00:00 Outpatient Nickell_K [facility]U [id number] [facility] 2022-12-22 00:00:00 2022-12-22 00:00:00 Outpatient Nickell_K [facility]U [id number] [facility] 2022-12-22 00:00:00 2022-12-22 00:00:00 Outpatient Nickell_K [facility] HMU [id number] [facility] 2022-12-22 00:00:00 2022-12-22 00:00:00 Chris Davila MD: [id number] [address] , Ph. [facility] [id number] [facility] 2022-11-30 00:00:00 2022-11-30 00:00:00 Outpatient Nickell_K [facility] U [id number] [facility] 2022-11-21 00:00:00 2022-11-21 00:00:00 Outpatient Nickell_K [facility] U [id number] [facility] 2022-11-10 00:00:00 2022-11-10 00:00:00 Outpatient Nickell_K [facility] U [id number] [facility] 2022-11-10 00:00:00 2022-11-10 00:00:00 Outpatient Nickell_K [facility] U [id number] [facility] 2022-11-10 00:00:00 2022-11-10 00:00:00 Chris Davila MD: [id number] [address] , Ph. HM[facility] Urology [facility] [id number] [facility] 2022-11-06 00:00:00 2022-11-06 00:00:00 Outpatient Nickell_K [facility] [id number] [facility] 2022-11-06 00:00:00 2022-11-06 00:00:00 Outpatient Nickell_K [facility] [id number] [facility] 2022-04-27 00:00:00 2022-04-27 00:00:00 Outpatient Nickell_K [facility] [id number] [facility] 2022-04-20 00:00:00 2022-04-20 00:00:00 Outpatient Nickell_K [facility] [id number] [facility] 2022-04-19 00:00:00 2022-04-19 00:00:00 Outpatient Nickell_K [facility] [id number] [facility] 2022-04-19 00:00:00 2022-04-19 00:00:00 Chris Davila MD: [id number] [address] , Ph. [facility] - [id number] [facility] 2022-04-17 00:00:00 2022-04-17 00:00:00 Outpatient Nickell_K [facility] [id number] [facility] 2022-03-28 00:00:00 2022-03-28 00:00:00 Outpatient Nickell_K [facility] [id number] [facility] 2021-10-13 10:30:00 2021-10-13 10:30:00 Outpatient ADRIÁN RENNER [facility] [id number] [facility] 2021-10-10 00:00:00 2021-10-10 00:00:00 Orders Only Doctor Unassigned, Vass [facility] [id number] [id number] [id number] [id number] [facility] 2021-10-09 09:15:00 2021-10-09 09:35:00 Nurse Visit Nurse, [facility] Unknown, Attending [facility] E[facility]LEE BACK[facility] [id number] [id number] [id number] [id number] [facility] 2021-10-09 09:15:00 2021-10-09 09:29:36 Outpatient R AZALEAMICHAELDEBBI [facility] [id number] [facility] 2021-10-09 09:15:00 2021-10-09 09:15:00 Outpatient R UNKNOWN, ATTENDING [facility] [id number] [facility] Results Test Description Test Time Test Comments Results Result Co mments Source [facility] UrologyUrinalysis macro (dipstick) panel - [id number] 15:37:00* Test Item Value Reference Range Interpretation Comme nts leukocytes (test code = leukocytes) negative neg urobilinogen (test code = urobilinogen) 0.2 E.U./dL sm amt (.5-1mg/dL) protein (test code = protein) negative See_Comment [Automated Page2Imagesa ge] The system which generated this result transmitted reference range: <=150 mg/d. The reference range was not used to interpret this result as normal/abnormal. pH (test code = pH) 7.0 4.5-8 blood (test code = blood) negative See_Comment [Automated Page2Imagesa ge] The system which generated this result [...] nitrite (test code = nitrite) negative neg [facility]rologyUrinalysis macro (dipstick) panel - [id number] 11:07:00* Test Item Value Reference Range Interpretation [...] (test code = nitrite) negative neg [facility] Urology History and Physical Notes Date/Time Note Provider Source 2023-09-05 17:47:13 [id number]:47:13F ormatting of this note might be different from the original.Outpatient Preop H&PReferring Physician:Maurice Longo MD[address], [place] [address] (phone) (fax)Chief Complaint:DiverticulitisVital Signs:BP(mmHg) Pulse(bpm) Rhythm Weight (lbs/oz) Height (ft/in) BMI Resp/min Pggj494/78 68 Regular 255 / 5 / 10 36.58 18 98.2 (F)History of Present Illness:Pdero Esqueda is seen for an initial visit today. Patient with an episode of pelvic pain and diarrhea 8-10 times with no blood in June 17. resented to ER in [place] and CT revealed diverticulitis. Given Augmentin which helped within 24 hours.Past Medical HistoryMedical Conditions:DiverticulitisTattoosSurgical Procedures:Right testicle removed from e. 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 Denies difficulty swallowing, ear pain, nasal obstruction, nose bleeds, sore throat, hearing loss.Endocrine: Denies excessive thirst, hair loss, heat intolerance.Eyes: Denies double vision, loss of vision, photophobia.Gastrointestinal: Denies abdominal pain, abdominal swelling, change in bowel habits, constipation, diarrhea, gas, heartburn, jaundice, nausea, rectal bleeding, stomach cramps, vomiting, dysphagia, black tarry stools, belching, bloating, Rectal Pain.Genitourinary: Denies dark urine, decrease in urine flow, dysuria, frequent urinary infections, frequent urination, hematuria, impotence, nocturia, urethral discharge or incontinence.Hematologic/Lymphatic: Denies bleeding gums or palpable lymph nodes, easy bruising, prolonged bleeding.Integumentary: Denies allergies, dryness, hives, itching, jaundice, lesions, rashes.Musculoskeletal: Complains of back pain. Denies arthritis, gout, joint deformity, joint pain, muscle weakness, stiffness.Neurological: Complains of dizziness, frequent headaches. Denies fainting, migraine, numbness or tingling, seizures, tremors, vertigo, memory loss.Psychiatric: Complains of difficulty sleeping. Denies anxiety, depression, hallucinations, nervousness, panic attacks, paranoia.Respiratory: Denies asthma, cough, dyspnea, excessive sputum, hemoptysis, shortness of breath with exercise, wheezing.Physical Exam:Constitutional:Appearance: well-developed, appropriate grooming, in no acute distress..Communication: conversation appropriate.Skin:Inspection: no rashes, ulcers, icterus or other lesions.Palpation: no induration or subcutaneous nodules.Neck:Neck: normal motion and central trachea.Thyroid: normal size, consistency and position; no masses or tenderness.Respiratory:Effort: normal respiratory effort and no intercostal retractions.Auscultation: normal breath sounds, no rubs, wheezes or rhonchi.Chest:Inspection: symetrical without visualized masses.Palpation: no significant costal margin tenderness.Cardiovascular:Auscultation: normal, S1 and S2,no gallops,no rubs or murmurs.Peripheral: no edema, varicosities or cyanosis.Gastrointestinal/Abdomen:Abdomen: normal consistency, no tenderness or masses,normal bowel sounds.Liver/Spleen: normal,normal size,not palpable.Psychiatric:Judgment/insight: normal judgement, normal insight.Orientation: oriented to time, space and person.Impressions:Acute diverticulitis, resolved. Plan; fiber supplementationColon cancer screening (low/average risk)Plan:[facility], alternatives, and potential risks and complications were discussed with the patient including, but not limited to, bleeding, perforation, missed lesions, and anesthesia complications. The patient understands the above, wishes to proceed and has given informed consent. Written patient education information was provided to the patient.MAC sedation required due to medical conditions documented abovePreop IV orders: IV NS or LR at 50cc/Amaury Son MD48:16 AM 86445-5Utygiwn and physical [id number]:16:46History and physical [id number] for patient [id number] and physical noteLNNARRATIVEFormatted C-CDA narrative text[address] [id number]:16:461.2.840 .[id number]|[id number]. [id number] [facility] Notes Date/Time Note Provider Source 2023-08-30 11:35:01 [id number]:35:01F ormatting of this note might be different from the original.Images from the original note were not included.Your upcoming procedure is at [facility] on 09/06/23. The address is [address] [place] [address], [facility].The nursing staff at [facility] will call you the workday before your procedure to let you know what time to arrive. When you arrive, please go inside and sign in at the desk.Please note: You may not travel home alone after your procedure and that includes in a taxi or by bus. We must speak to your Responsible Adult (who will be picking you up) the morning of your procedure, before the start of your procedure. This person must be an adult over the age of 18 years of age.Maintain a clear liquid diet the entire day before your procedure. Do not drink anything containing red, blue, or purple dyes. Follow the instructions of your bowel prep as directed by you physician. You may also take your medications the morning of your procedure with a sip of water as directed by physician.Anticoagulants will be per physician Guidance. Medication Note(s)/Instructions: n/aBoth patient and person accompanying and/or picking patient up must be able to wear a mask and be without symptoms of COVID 19.Pending screening, a COVID test may be required. If a patient tests positive, their cases are cancelled and/or rescheduled. COVID NOTE: Denies COVID symptoms or exposure, no testing required.Additional questions, concerns, requests:Bowel prep instructions e-mailed per patient request. CB number provided.Patient verbalized understanding of pre-op instructions and voiced no further questions at this time. [id number] [id number] for patient [id number] NoteLNNARRATIVEFormatted C-CDA narrative text[address] [id number] [id number] .[id number] [facility]"
--- NOTE | 2023-10-09 07:33 | ER ---
Nurse's Notes [facility] Name: Theodore Esqueda Jr Age: 43 yrs Sex: Male : 1980 Arrival Date: 10/09/2023 Time: 07:01 Bed 18 Private MD: Diagnosis: Foreign body in right ear Presentation: 10/08 07:15 Chief complaint: Patient states: "One of my earbuds got stuck in my ear". rs5 07:15 Coronavirus screen: At this time, the client does not indicate any symptoms associated rs5 with coronavirus-19. Ebola Screen: No symptoms or risks identified at this time. Initial Sepsis Screen: Does the patient meet any 2 criteria? No. Patient's initial sepsis screen is negative. Does the patient have a suspected source of infection? No. Patient's initial sepsis screen is negative. Risk Assessment: Do you want to hurt yourself or someone else? Patient reports no desire to harm self or others. Onset of symptoms was October 09, 2023. 07:15 Method Of Arrival: Ambulatory rs5 07:15 Acuity: BINA 3 rs5 Triage Assessment: 07:15 General: Appears in no apparent distress. comfortable, Behavior is calm, cooperative. rs5 Historical: - Allergies: 07:20 No Known Allergies; rs5 - PMHx: 07:20 None; rs5 - PSHx: 07:20 riight testicle removed; rs5 - Immunization history:: Adult Immunizations up to date. - Infectious Disease History:: Denies. - Social history:: Smoking status: Patient denies any tobacco usage or history of. Screenin:15 [facility] ED Fall Risk Assessment (Adult) History of falling in the last 3 months, rs5 including since admission No falls in past 3 months (0 pts) Confusion or Disorientation No (0 pts) Intoxicated or Sedated No (0 pts) Impaired Gait No (0 pts) Mobility Assist Device Used No (0 pt) Altered Elimination No (0 pt) Score/Fall Risk Level 0 - 2 = Low Risk Oriented to surroundings, Maintained a safe environment. Abuse screen: Denies threats or abuse. Nutritional screening: No deficits noted. Tuberculosis screening: No symptoms or risk factors identified. Assessment: 07:15 General: Appears in no apparent distress. uncomfortable, Behavior is calm, cooperative. rs5 Pain: Denies pain. Neuro: Level of Consciousness is awake, alert, obeys commands, Oriented to person, place, time, situation. Cardiovascular: Patient's skin is warm and dry. Rhythm is regular. Respiratory: Airway is patent Respiratory effort is even, unlabored, Respiratory pattern is regular, symmetrical. GI: Abdomen is round non-distended, Abd is soft and non tender X 4 quads. : No signs and/or symptoms were reported regarding the genitourinary system. EENT: Reports "i have an earbud stuck in my right ear", . Derm: Skin is intact, Skin is dry, Skin is normal. Musculoskeletal: Range of motion: intact in all extremities. 07:20 Reassessment: Provider at bedside. rs5 07:30 Reassessment: Patient and/or family updated on plan of care and expected duration. Pain rs5 level reassessed. Patient is alert, oriented x 3, equal unlabored respirations, skin warm/dry/pink. Patient denies pain at this time. Patient states feeling better. Patient states symptoms have improved. Vital Signs: 07:15 BP 110 / 80; Pulse 80; Resp 18; Temp 97.8(O); Pulse Ox 99% on R/A; rs5 07:30 BP 112 / 79; Pulse 77; Resp 18; Pulse Ox 99% on R/A; rs5 ED Course: 07:04 Patient arrived in ED. jj6 07:11 Joseluis Becerril MD is Attending Physician. ec2 07:15 Patient has correct armband on for positive identification. Placed in gown. Bed in low rs5 position. Call light in reach. Side rails up X2. 07:15 Arm band placed on right wrist. rs5 07:15 No provider procedures requiring assistance completed. rs5 07:18 Andi Altamirano, DAVID is Primary Nurse. rs5 07:20 Triage completed. rs5 07:35 Patient did not have IV access during this emergency room visit. rs5 Administered Medications: No medications were administered Medication: 07:15 VIS not applicable for this client. rs5 Outcome: 07:32 Discharge ordered by . ec2 07:35 Discharged to home ambulatory, rs5 07:35 Condition: stable 07:35 Discharge instructions given to patient, family, Instructed on discharge instructions, follow up and referral plans. Demonstrated understanding of instructions, follow-up care, 07:38 Patient left the ED. rs5 Signatures: Adele Vasques jj6 Andi Altamirano RN RN rs5 Joseluis Becerril MD MD ec2
--- NOTE | 2023-10-09 07:33 | EDPHYS ---
Physician Documentation [facility] Name: Theodore Esqueda Jr Age: 43 yrs Sex: Male : 1980 Arrival Date: 10/09/2023 Time: 07:01 Bed 18 Private MD: ED Physician Joseluis Becerril HPI: 10/08 07:32 This 43 yrs old Male presents to ER via Ambulatory with complaints of Foreign ec2 Body In Ear. 07:32 Patient arrives today for evaluation report of body in the right ear. Patient reports ec2 that he had a ear bud that is retained in the right ear. Patient reports no other concerns or injuries or trauma. Episode happened approximately 1 hour prior to arrival.. Historical: - Allergies: 07:20 No Known Allergies; rs5 - PMHx: 07:20 None; rs5 - PSHx: 07:20 riight testicle removed; rs5 - Immunization history:: Adult Immunizations up to date. - Infectious Disease History:: Denies. - Social history:: Smoking status: Patient denies any tobacco usage or history of. ROS: 07:32 Constitutional: as per hpi ec2 Exam: 07:32 Constitutional: GEN: NAD Head: atraumatic Eyes: EOMI Ears: External ears are normal., ec2 Retained rubber piece of earbud in the right ear. CV: regular rate LUNGS: no respiratory distress ABD: non-distended SKIN: no evidence of rashes MSK: no evidence of trauma NEURO: moves all extremities equally Vital Signs: 07:15 BP 110 / 80; Pulse 80; Resp 18; Temp 97.8(O); Pulse Ox 99% on R/A; rs5 07:30 BP 112 / 79; Pulse 77; Resp 18; Pulse Ox 99% on R/A; rs5 Procedures: 07:32 Foreign Body Removal: Report of the earbud, from the right ear canal, by using ec2 alligator clamps, The patient tolerated the removal well. MDM: 07:26 Patient medically screened. ec2 07:32 ED course: Patient arrives today for evaluation of right ear foreign body. I was able ec2 to successfully move without issue, no evidence of ear injury. Will discharge home. Return precautions given.. 07:33 Data reviewed: vital signs. ec2 Administered Medications: No medications were administered Disposition Summary: 10/09/23 07:32 Discharge Ordered Notes: Location: Home ec2 Condition: Stable ec2 Diagnosis - Foreign body in right ear ec2 Followup: ec2 - With: Private Physician - When: - Reason: Re-evaluation by your physician Discharge Instructions: - Discharge Summary Sheet ec2 - Ear Foreign Body, [id number] ec2 Forms: - Medication Reconciliation Form ec2 - Thank You Letter ec2 - Antibiotic Education ec2 - Prescription Opioid Use ec2 - Patient Portal Instructions ec2 - Leadership Thank You Letter ec2 Signatures: Andi Altamirano RN RN rs5 Joseluis Becerril MD MD ec2 Corrections: (The following items were deleted from the chart) 07:33 07:32 Patient arrives today for evaluation report of body in the right ear. Patient ec2 reports that he had a ear bud that is retained in the right ear. Patient reports no other concerns or injuries or trauma.. ec2
[2023-10-09 16:30] VITALS: BP 110/80; TEMP 97.8; O2SAT 99
== END 2023-10-09 07:38 | disposition home or self-care (01) ==
LOC: ER 07:01
PROC: 09C3XZZ Extirpation of Matter from Right External Auditory Canal, External Approach (ICD-10-PCS; principal; 2023-10-09)
DX: T16.1XXA Foreign body in right ear, initial encounter (principal)
CPT/HCPCS: 99282